=== PATIENT | female | born 1960 | race Caucasian/White ===

== ENCOUNTER 2023-09-12 05:34 | Observation (INO) ==
--- NOTE | 2023-08-26 13:35 | PAT Medication Instructions ---
Medication Instructions Date of Service August 26, 2023 Home Medications cholecalciferol (vitamin D3) 125 mcg (5,000 unit) tablet (Vitamin D3) 125 mcg PO QAM cranberry 500 mg capsule 500 mg PO DAILY duloxetine 20 mg capsule,delayed release (Cymbalta) 20 mg PO BID ibuprofen 200 mg tablet 200 - 800 mg PO Q6H PRN levothyroxine 88 mcg tablet 88 mcg PO QAM lisinopril 40 mg tablet 40 mg PO QAM propranolol 10 mg tablet 10 mg PO QAM STOP 7 days before surgery tirzepatide (weight loss) 5 mg/0.5 mL subcutaneous pen injector 5 mg subcut WK ASK your surgeon for instructions ibuprofen 200 mg tablet 200 - 800 mg PO Q6H PRN DO NOT take the morning of surgery cholecalciferol (vitamin D3) 125 mcg (5,000 unit) tablet (Vitamin D3) 125 mcg PO QAM cranberry 500 mg capsule 500 mg PO DAILY lisinopril 40 mg tablet 40 mg PO QAM Take morning of surgery With a small sip of water, OTHERWISE NOTHING TO EAT OR DRINK AFTER MIDNIGHT: duloxetine 20 mg capsule,delayed release (Cymbalta) 20 mg PO BID levothyroxine 88 mcg tablet 88 mcg PO QAM propranolol 10 mg tablet 10 mg PO QAM Take evening before surgery duloxetine 20 mg capsule,delayed release (Cymbalta) 20 mg PO BID Other Notes If you have any questions please call us at [phone] or [phone] or [phone] or [phone]
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
[2023-09-12] MEDS: LR 60ML/HR IV SCH (06:59)
[2023-09-12] MEDS: LR 15ML/HR IV SCH (06:59)
[2023-09-12] MEDS: GABAPENTIN 600 MG DOSE PO SCH (07:00)
[2023-09-12] MEDS: ACETAMINOPHEN 500 MG TAB PO SCH (07:00)
[2023-09-12] MEDS: CeleBREX 200 MG CAP PO SCH (07:00)
[2023-09-12] MEDS ORDERED: MIDAZOLAM HCL 1 MG/ML 2ML VIAL ONE (07:22)
[2023-09-12] MEDS ORDERED: fentaNYL citrate PF 100 MCG/2 ML VIAL ONE ×2 (07:22→08:34)
[2023-09-12] MEDS ORDERED: ONDANSETRON INJ 2 MG/ML 2 ML VIAL IV PRN ×2 (07:25→12:14)
[2023-09-12] MEDS ORDERED: ePHEDrine sulfate 50 MG/ML AMP IV PRN (07:25)
[2023-09-12] MEDS ORDERED: ATROPINE SULFATE 0.1 MG/ML 10ML SYR IV PRN (07:25)
[2023-09-12] MEDS ORDERED: DEXAMETHASONE SOD INJ 4 MG/ML VIAL ONE (07:28)
[2023-09-12] MEDS ORDERED: PROPOFOL IV EMULSION 10 MG/ML 20 ML VIAL IV ONE (07:28)
[2023-09-12] MEDS ORDERED: ONDANSETRON INJ 2 MG/ML 2 ML VIAL ONE (07:28)
[2023-09-12] MEDS ORDERED: LIDOCAINE 2% 2 ML VIAL/AMP(20MG/ML) INFIL ONE (07:28)
[2023-09-12] MEDS ORDERED: ROCURONIUM BROMIDE 10 MG/ML 5 ML VIAL IV ONE ×2 (07:28→08:49)
[2023-09-12] MEDS: SCOPOLAMINE 1 MG/72 HR TDSY PATCH TD ONE ×2 (07:28)
--- NOTE | 2023-09-12 07:34 | History & Physical Bridge Note ---
Date of Service September 12, 2023 History & Physical Bridge Note I have examined the patient, reviewed the History & Physical and in the interval since the performance of the History & Physical I have noted the following changes of clinical significance: no changes noted
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
[2023-09-12] MEDS: ceFAZolin 2000MG 2,000 MG/15 ML SYR IV SCH ×2 (07:47→15:18)
[2023-09-12] MEDS: ceFAZolin 330 MG/ML 1 GM VIAL ONE (08:27)
[2023-09-12] MEDS ORDERED: diphenhydrAMINE 50 MG/ML VIAL ONE ×2 (08:37→10:00)
[2023-09-12] MEDS: FLOSEAL HEMOSTATIC MATRIX 10ML TOP ONE (09:10)
[2023-09-12] MEDS ORDERED: SUGAMMADEX SODIUM 200 MG/2 ML VIAL IV ONE (09:14)
--- NOTE | 2023-09-12 09:22 | Operative Report ---
Post Operative Report Pre & Post Diagnosis Operation Date: 09/12/23 07:40 Pre-Op Diagnosis: #1 cervical radiculopathy #2 cervical disc herniation with radiculopathy #3 cervical spinal stenosis #4 morbid obesity Post-Op Diagnosis: Same I identified the patient and participated in the time-out.: Yes Procedure Operation Date: 09/12/23 07:40 Actual Procedures #1 anterior cervical discectomy with bilateral foraminotomies C4-C5 C5-C6. #2 anterior cervical arthrodesis C4-C5 C5-C6. #3 placement Spira 8 mm cage filled with I factor at C4-C5 C5-C6. #4 application of K2 M plate and screws from C4- C6. Surgeon Suhail Pierce, DO [employer] Anam De Oliveira Estimated Blood Loss 25 Findings See Below The patient is 5 foot 7 weighing over 119 kg with a BMI in excess of 41. I am billing 22 modifier as her body habitus added significant technical difficulty with positioning exposure and the procedure itself required deepest retractors and instruments in order to perform her procedure. This at least for 50% increased operative time. Specimens None Indications This is a 62-year-old female who presents above-mentioned diagnosis after failing since course of nonoperative care is here for surgical invention. Description of Procedure Patient was met with identified informed consent obtained. Patient was then taken to the operative suite underwent patient placed in a supine position on the Talat table with head Mccray head order. Positioning required significant time to adequately position the patient to access the cervical spine. She was then prepped and draped in a sterile fashion. The assistance of fluoroscopy defy the C5 vertebral body and a transverse incision was placed on the right anterior aspect of the cervical spine at minus region. Blunt dissection with assistance of bipolar electrocautery from down to and exposing the anterior cervical spine from C4-C6. I then placed our longest retractors in order to visualize the spine. I then performed a complete discectomy C4-C5 out to the uncovertebral's bilaterally. [place] distraction pins utilized to assist in visualization. All posterior annular fibers longitudinal ligament removed and bilateral foraminotomies performed as well as excision of a disc herniation for complete decompression. Endplates burred to subcortical bleeding bone and 8 mm Spira cage filled with I factor tapped in position. Distracting apparatus was removed and area position to C5-C6. A complete discectomy can performed without complete loss bilaterally. [place] distraction pins again utilized. Removed all posterior annular fibers longitudinal limit bilateral foraminotomies performed. Endplates burred to subcortically and bone and a 8 mm Spira cage with I factor tapped in position. Distracting apparatus was removed all anterior osteophytes burred to a smooth cortical surface and a K2 M plate and screws applied with the assistance of fluoroscopy. Incision was then copiously irrigated explored to ensure no damage to surrounding structures remaining bleeding. 10 round ТАТЬЯНА drain inserted. The incision was then closed with 2 Vicryl in a fashion of 4 Monocryl for final skin closure. Steri-Strips sterile dressing placed. Patient awakened taken to PACU stable condition. Please note spinal cord monitoring utilized at the procedure no changes noted. Lastly Anam De Oliveira was present at the entire surgery involved the patient positioning complex portion of the surgery and final skin closure. I attest to the content of the Intraoperative Record and any orders documented therein. Any exceptions are noted below.
[2023-09-12] MEDS: fentaNYL citrate PF 100 MCG/2 ML VIAL IV PRN (09:55)
[2023-09-12] MEDS ORDERED: GLYCOPYRROLATE 0.2 MG/ML VIAL ONE (10:00)
--- NOTE | 2023-09-12 10:01 | Fluoroscopy Report ---
FL cervical 2-3V CLINICAL HISTORY: ACDF C4-C6 COMPARISON STUDY: None. FLUOROSCOPY TIME: 10 seconds. FLUOROSCOPY IMAGES: 2 Ka,r: 2.3 mGy FINDINGS: Anterior cervical discectomy and fusion from C4 through C6. The hardware appears intact. An endotracheal tube is noted. A surgical drain is in place on the final image. IMPRESSION: Fluoroscopic assistance as above. ACT 112: Negative or not required by law. Electronically signed by: Alexander Medina M.D. 09/12/2023 10:00 AM
--- NOTE | 2023-09-12 10:45 | Anesthesiology Progress Note ---
Date of Service September 12, 2023 Anesthesia Post Procedure Vital Signs Vital Signs: Temp Pulse Pulse Resp BP Pulse Ox O2 Del Method 09/12/23 10:35 97.5 F L 75 13 148/75 H 96 Nasal Cannula 09/12/23 10:25 74 12 132/78 96 Nasal Cannula 09/12/23 10:15 75 13 145/95 H 96 Oxymask 09/12/23 10:05 71 12 151/93 H 97 Oxymask 09/12/23 09:55 66 12 155/91 H 100 Oxymask 09/12/23 09:45 97.9 F 80 16 172/105 H 99 Oxymask 09/12/23 06:40 97.7 F 73 18 150/79 H 98 Room Air O2 Flow Rate 09/12/23 10:35 2 09/12/23 10:25 2 09/12/23 10:15 4 09/12/23 10:05 7 09/12/23 09:55 12 09/12/23 09:45 12 09/12/23 06:40 Pain Intensity Left Shoulder: Pain Intensity: 4 Neck: Pain Intensity: 4 Transfer of Care Handoff Completed per policy Notes Mental Status: alert / awake / arousable and participated in evaluation Patient Amnestic to Procedure: Yes Nausea / Vomiting: adequately controlled Pain: adequately controlled Airway Patency, RR, SpO2: stable & adequate BP & HR: stable & adequate Hydration State: stable & adequate Anesthetic Complications: no major complications apparent and Pt Satisfied with anesthetic care
[2023-09-12] MEDS ORDERED: RACEPINEPHRINE 2.25% NEBU SOLN 0.5 ML VIAL INH PRN (12:14)
[2023-09-12] MEDS ORDERED: ALUMINUM/MAGNESIUM SUSP 30 ML UDC PO PRN (12:14)
[2023-09-12] MEDS ORDERED: DO NOT ADMINISTER PNEUMOCOCCAL VACCINE PRN (12:14)
[2023-09-12] MEDS ORDERED: bisacodyL 10 MG SUPP PR PRN (12:14)
[2023-09-12] MEDS ORDERED: [UNRECOGNIZED DRUG - OTHER] SQ SCH (12:14)
[2023-09-12] MEDS ORDERED: diphenhydrAMINE Capsule 25 MG CAP PO PRN (12:14)
[2023-09-12] MEDS ORDERED: FAMOTIDINE 20 MG TAB PO PRN (12:14)
[2023-09-12] MEDS ORDERED: LORazepam 0.5 MG in SYRINGE 0.25 ML IV PRN (12:14)
[2023-09-12] MEDS ORDERED: PROMETHAZINE HCL 12.5 MG in SODIUM CHLORIDE 0.9% 50 ML IV PRN (12:14)
[2023-09-12] MEDS ORDERED: hydrOXYzine HCl 25 MG TAB PO PRN (12:14)
[2023-09-12] MEDS ORDERED: SOD PHOSPHATE/SOD BIPHOSPHATE ENEMA 132 ML BTL PR PRN (12:14)
[2023-09-12] MEDS ORDERED: DO NOT ADMINISTER FLU VACCINE PRN (12:14)
[2023-09-12] MEDS ORDERED: HYDROmorphone INJ 0.5 MG/0.5 ML SYR IV PRN (12:14)
[2023-09-12] MEDS ORDERED: HYDROmorphone INJ 1 MG/ML SYRINGE IV PRN (12:14)
[2023-09-12] MEDS ORDERED: ACETAMINOPHEN 1,000 MG/100 ML VIAL IV PRN (12:14)
[2023-09-12] MEDS ORDERED: traMADol HCL 50 MG TABLET PO PRN (12:14)
[2023-09-12] MEDS ORDERED: NALOXONE HCL 0.4 MG/1 ML VIAL/CARP IV PRN (12:14)
[2023-09-12] MEDS ORDERED: MAGNESIUM HYDROXIDE SUSP 30 ML UDC PO PRN (12:14)
[2023-09-12] MEDS ORDERED: METOCLOPRAMIDE HCL INJ 5 MG/ML 2 ML VIAL IV PRN (12:14)
[2023-09-12] MEDS ORDERED: TIRZEPATIDE 5 MG/0.5 ML SQ SCH (12:14)
[2023-09-12] MEDS ORDERED: LORazepam 0.5 MG TAB PO PRN (12:14)
[2023-09-12] MEDS ORDERED: dexAMETHasone 8 MG in SYRINGE 0 ML IV PRN (12:14)
[2023-09-12] MEDS ORDERED: ONDANSETRON 4 MG OD TAB PO PRN (12:14)
[2023-09-12] MEDS ORDERED: ACETAMINOPHEN 500 MG TAB PO PRN (12:14)
[2023-09-12] MEDS: LACTATED RINGER'S 1,000 ML IV SCH (13:02)
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
[2023-09-12] MEDS: oxyCODONE HCL IR 5 MG TAB (IMMEDIATE RELEASE) PO PRN (14:29)
[2023-09-12] MEDS: CHECK SCOPOLAMINE PATCH PLACEMENT SCH (15:23)
[2023-09-12] MEDS: DULoxetine HCL 20 MG CAP PO SCH (19:50)
[2023-09-12] MEDS: DOCUSATE SODIUM/SENNA 50/8.6MG TAB PO SCH (23:38)
[2023-09-13] MEDS: POLYETHYLENE (MIRALAX) 17 GM PACK PO SCH (05:14)
[2023-09-13] MEDS: LEVOTHYROXINE SODIUM 88 MCG TABLET PO SCH (05:15)
--- NOTE | 2023-09-13 07:05 | Hospitalist Progress Note ---
Date of Service September 13, 2023 Assessment & Plan (1) Cervical stenosis of spinal canal: (2) Hypertension: (3) Sinus tachycardia: (4) Sleep apnea: (5) Hypothyroidism: (6) GERD (gastroesophageal reflux disease): (7) Chronic pain: (8) Depression: Plan: Cervical Spine Stenosis Cervical disc herniation with radiculopathy Cervicular radiculopathy - S/p discectomy and bilateral foraminotomies of C4-C5 and C5-C6 by Dr. Pierce - Admitted to med surg per the primary team - Pain management, bowel regimen and DVT ppx per the primary team - PT/OT consults - Follow am CBC to monitor for acute blood loss, hgb 14.2 on 08/31 - ТАТЬЯНА drain in place in anterior neck, place C collar on. HTN Sinus tachycardia - Hx of such, chronic, continue on home propranolol and lisinopril LUDWIG - CPAP HS - pt brought from home Depression Chronic Pain - Continue cymbalta Hypothyroidism - Chronic, stable, cont levothyroxine 88 mcg daily Obesity - Zepbound 5 mg weekly injection, takes on Fridays, will take it when she is discharge. Has been on med for 2 months, 15 lb weight loss total sinice 2 mo ago. - BMI 41.2 DVT ppx: teds, scds Lines: ТАТЬЯНА drain anterior neck FEN/GI: Clear liquid diet, advance as tolerated CODE: Full code Dispo: From home, likely to remain in the hospital x 1-2 days per primary team Thank you for involving us in the care of Ms. Grullon. If you have any questions or concerns please do not hesitate to call. At this time medicine will follow along. Admission and Anticipated Discharge Date Admission Date: September 12, 2023 Subjective Pt seen in follow up of med consult, s/p cervical discectomy Physical Exam Physical Exam: General: awake, alert, no apparent distress, obese white female with BMI of 41.2 Head: Normocephalic, atraumatic ENT: PERRL, EOMI, no pharyngeal exudate, mucous membranes moist, Neck with c- collar at bedside (asked nursing to place on), ТАТЬЯНА drain intact with bloody outs Chest: Clear to auscultation, on room air, no adventitious breath sounds Cardiac: Regular rate and rhythm, no murmur, no JVD, normal peripheral pulses, good capillary refill Abdominal: NABS x 4 quadrants, soft, nondistended, nontender to palpation, no rebound or guarding Extremities: Normal inspection, no peripheral edema or erythema, calfs nontender to palpation Psych: Normal mood and affect Neuro: AAO x 3, strength intact bilaterally and rated 5/5, no motor deficits, speech is clear, no peripheral sensory deficits Results & Data Results & Data Vital Signs (Past 12 Hours) Vital Signs Temp Pulse Pulse Resp BP Pulse Ox O2 Del Method 09/13/23 05:16 36.4 C L 79 18 130/78 96 Room Air 09/13/23 02:56 77 18 92 Room Air 09/13/23 02:44 36.5 C 70 18 110/62 93 Room Air 09/13/23 00:44 36.6 C 61 18 105/65 95 Room Air 09/12/23 23:44 36.6 C 71 18 114/79 92 Room Air 09/12/23 22:57 70 17 95 Room Air 09/12/23 21:22 36.4 C L 71 18 115/72 92 Room Air 09/12/23 20:03 72 16 92 Room Air 09/12/23 19:42 36.3 C L 71 18 115/69 93 Room Air Medications Administered Current Inpatient Medications Acetaminophen (Acetaminophen 500 Mg Tab) 1,000 mg PO Q8H PRN PRN Reason: MILD Pain Scale 1,2,3 & Pre PT Stop: 10/12/23 12:13 Al Hydrox/Mg Hydrox/Simethicone (Aluminum/Magnesium Susp 30 Ml Udc) 30 ml PO Q6H PRN PRN Reason: Dyspepsia Stop: 10/12/23 12:13 Bisacodyl (Bisacodyl 10 Mg Supp) 10 mg DE DAILY PRN PRN Reason: Constipation Stop: 10/12/23 12:13 Diphenhydramine HCl (Diphenhydramine Capsule 25 Mg Cap) 25 mg PO Q6H PRN PRN Reason: Allergic Rhinitis/Insomnia Stop: 10/12/23 12:13 Duloxetine HCl (Duloxetine Hcl 20 Mg Cap) 20 mg PO BID [facility] Stop: 10/12/23 20:59 Last Admin: 09/12/23 19:50 Dose: 20 mg Epinephrine (Racepinephrine 2.25% Nebu Soln 0.5 Ml Vial) 0.5 ml INH NOW PRN PRN Reason: If stridor present Famotidine (Famotidine 20 Mg Tab) 20 mg PO Q12H PRN PRN Reason: Dyspepsia Stop: 10/12/23 12:13 Hydromorphone HCl (Hydromorphone Inj 0.5 Mg/0.5 Ml Syr) 0.5 mg IV Q3H PRN PRN Reason: MODERATE Pain (Scale 4,5,6) & Pre PT Stop: 09/26/23 12:13 Hydromorphone HCl (Hydromorphone Inj 1 Mg/Ml Syringe) 1 mg IV Q3H PRN PRN Reason: SEVERE Pain (Scale 7,8,9,10) Stop: 09/26/23 12:13 Hydroxyzine HCl (Hydroxyzine Hcl 25 Mg Tab) 25 mg PO Q8H PRN PRN Reason: Anxiety Stop: 10/12/23 12:13 Dexamethasone 8 mg/ Syringe 2 mls @ 1 mls/min IV NOW PRN PRN Reason: If stridor present Promethazine HCl 12.5 mg/ (Sodium Chloride) 50.5 mls @ 202 mls/hr IV Q6H PRN PRN Reason: Nausea &/or Vomiting Stop: 10/12/23 12:13 Acetaminophen (Ofirmev) 1,000 mg in 100 mls @ 400 mls/hr IV Q8H PRN PRN Reason: Pain Rating 1-3 & Pre PT Stop: 09/13/23 12:15 Lorazepam 0.5 mg/ Syringe 0.5 mls @ 2 mls/min IV Q8H PRN; Protocol PRN Reason: Sedation/Anxiety Stop: 10/12/23 12:13 Dexamethasone 6 mg/ Syringe 1.5 mls @ 1 mls/min IV DAILY [facility] Stop: 09/15/23 09:02 Influenza Virus Vaccine Quadrival (Do Not Administer Flu Vaccine) 1 each N/A PRN PRN PRN Reason: Notification Stop: 10/12/23 12:13 Levothyroxine Sodium (Levothyroxine Sodium 88 Mcg Tablet) 88 mcg PO DAILYBB [facility] Stop: 10/13/23 06:29 Last Admin: 09/13/23 05:15 Dose: 88 mcg Lisinopril (Lisinopril 40 Mg Tab) 40 mg PO QAM [facility] Stop: 10/13/23 08:59 Lorazepam (Lorazepam 0.5 Mg Tab) 0.5 mg PO Q8H PRN PRN Reason: Sedation/Anxiety Stop: 10/12/23 12:13 Magnesium Hydroxide (Magnesium Hydroxide Susp 30 Ml Udc) 30 ml PO Q24H PRN PRN Reason: Constipation Stop: 10/12/23 12:13 Metoclopramide HCl (Metoclopramide Hcl Inj 5 Mg/Ml 2 Ml Vial) 10 mg IV Q6H PRN PRN Reason: Nausea &/or Vomiting Stop: 10/12/23 12:13 Miscellaneous (Check Scopolamine Patch Placement) 1 each N/A QS [facility] Stop: 09/15/23 05:59 Last Admin: 09/13/23 01:35 Dose: 1 each Miscellaneous (Remove Transderm-Scop Patch) 1 each N/A ONE ONE Stop: 09/15/23 06:01 Naloxone HCl (Naloxone Hcl 0.4 Mg/1 Ml Vial/Carp) 0.1 mg IV Q5M PRN PRN Reason: Oversedation/Resp depression Stop: 10/12/23 12:13 Ondansetron HCl (Ondansetron Inj 2 Mg/Ml 2 Ml Vial) 4 mg IV Q6H PRN PRN Reason: Nausea &/or Vomiting Stop: 10/12/23 12:13 Ondansetron HCl (Ondansetron 4 Mg Od Tab) 4 mg PO Q6H PRN PRN Reason: Nausea Stop: 10/12/23 12:13 Oxycodone HCl (Oxycodone Hcl Ir 5 Mg Tab (Immediate Release)) 5 - 10 mg PO Q4H PRN PRN Reason: Pain & Pre PT Stop: 09/26/23 12:13 Last Admin: 09/13/23 05:15 Dose: 10 mg Pneumococcal Polyvalent Vaccine (Do Not Administer Pneumococcal Vaccine) 1 each N/A PRN PRN PRN Reason: Notification Stop: 10/12/23 12:13 Polyethylene Glycol (Polyethylene (Miralax) 17 Gm Pack) 17 gm PO Q6 [facility] Stop: 10/13/23 05:59 Last Admin: 09/13/23 05:14 Dose: 17 gm Propranolol HCl (Propranolol Hcl 10 Mg Tab) 10 mg PO QAM [facility] Stop: 10/13/23 08:59 Senna/Docusate Sodium (Docusate Sodium/Senna 50/8.6mg Tab) 2 tab PO HS [facility] Stop: 10/12/23 20:59 Last Admin: 09/12/23 23:38 Dose: 2 tab Sodium Biphosphate/Sodium Phosphate (Sod Phosphate/Sod Biphosphate Enema 132 Ml Btl) 132 ml DE ONE PRN PRN Reason: Constipation Stop: 10/12/23 12:13 Tramadol HCl (Tramadol Hcl 50 Mg Tablet) 50 - 100 mg PO Q4H PRN PRN Reason: Moderate-Severe pain & Pre PT Stop: 10/12/23 12:13 Vitamin D (Cholecalciferol 125 Mcg (5,000 Units) Tab) 125 mcg PO QAM [facility] Stop: 10/13/23 08:59
[2023-09-13] MEDS: CHOLECALCIFEROL 125 MCG (5,000 UNITS) TAB PO SCH (07:44)
[2023-09-13] MEDS: PROPRANOLOL HCL 10 MG TAB PO SCH (07:44)
[2023-09-13] MEDS: lisinopril 40 MG TAB PO SCH (07:44)
[2023-09-13] MEDS: dexAMETHasone 6 MG in SYRINGE 0 ML IV SCH (07:45)
--- NOTE | 2023-09-13 08:38 | Discharge Summary ---
Date of Service September 13, 2023 Admission HPI Per Admitting Provider This is a 62-year-old female who presents for persistent neck and arm pain after failed course of nonoperative care is here for surgical invention. Principal Diagnosis Cervical spinal stenosis with radiculopathy Discharge Data Allergies Allergy/AdvReac Type Severity Reaction Status Date / Time azithromycin AdvReac Intermediate nausea and Verified 09/12/23 06:44 vomiting doxycycline AdvReac Intermediate nausea and Verified 09/12/23 06:44 vomiting Consultations 09/12/23 12:14 Consult Hospitalist Routine Procedures Performed Operation Date: 09/12/23 07:40 Actual Procedures p C4-C6 Anterior Cerivcal Discectomy and Fusion, Spinal Cord Monitoring(Not Applicable) - Suhail Pierce DO Ordered Studies 09/12/23 07:40 FL cervical 2-3V Routine Hospital Course (1) Cervical stenosis of spinal canal: Patient underwent anterior cervical discectomy and fusion tolerated this well was taken to orthopedic for postoperative. Postop patient progressed appropriately. Arm symptoms improved. Swallowing well. No hoarseness. Excellent strength testing. ТАТЬЯНА drain decreasing. Subsequent discharge home. Discharge orders instructions found in chart for further review. Total Time Total Time Spent Total Time Spent (In Minutes): 20 minutes Discharge Plan Discharge Items Patient Disposition: Home - Self-Care Reason For Visit: Cervical Radiculopathy, Cervical Spondylosis Discharge Diagnosis: Cervical disc herniation with radiculopathy Activity: As commented below Non-emergency contact: Primary Care Provider Call non-emergency contact if: you have any medication questions Follow-up/Referrals: Rishabh Duggan MD [Primary Care Provider] - Diet: Regular Addtl Attending Provider Instructions: ACTIVITY RECOMMENDATIONS: SELF CARE INSTRUCTIONS AFTER CERVICAL FUSIONS 1. No smoking. Smoking drastically decreases the chance of a solid fusion. 2. No bending, lifting more than 5 pounds, or twisting (roll like a log when turning in bed). 3. You may shower 3 days after surgery. Thoroughly dry wound. Do not soak in the tub. 4. Cervical collar: Must be worn at all times including sleeping. You may remove the brace only to bath, eat and if you are sitting in a recliner. 5. Please walk as much as you can for exercise. Gradually increase the distance that you walk as your endurance increases. SPECIAL CARE INSTRUCTIONS: VERY IMPORTANT TO READ AND REVIEW A. Do not take any anti-inflammatory medications (i.e. Indocin, Advil, Aspirin, Naprosyn, Aleve, Motrin, etc.) as these may inhibit the chance of a solid fusion. Tylenol is okay to take. B. Your surgical incision has been closed with a cosmetic suture under the skin that will dissolve in about 6 weeks. In 14 days, you can use a pair of clean scissors and cut the suture that is left outside of the skin at the ends of your incision. C. Complications are uncommon, but please contact us if you have any signs or symptoms of: 1. wound infection (fever higher than 102.5 degrees F, redness, separation of wound, drainage, or increasing pain from the incision) 2. blood clots in legs (pain, swelling, redness and warmth in legs) 3. urinary tract infection (fever higher than 102.5 degrees, burning upon urination or increased frequency of urination) 4. nerve problems (inability to walk on your toes or heels, numbness, loss of bowel or bladder control) 5. any other symptoms that concern you. D. Please call the office at if you have any concerns or questions about your operation or recovery. MANAGING PAIN AFTER SPINAL SURGERY 1. Narcotic medication is intended for short-term use and will be provided for surgical pain. Surgical pain usually lasts for a period of 4-6 weeks. Narcotic medication includes Percocet, Vicodin, Darvocet, Tylenol #3 or Lortab. 2. Longer-term pain is more appropriately treated with non-narcotic medication such as Tylenol ES. 3. Muscle spasm is not appropriately treated with narcotics. Muscle relaxers such as Soma, Flexeril or Skelaxin can be used along with Tylenol ES. 4. Remember that we all live with some "aches and pains". This is not unusual or uncommon after an injury or as we get older. 5. We will provide appropriate medication within the normal guidelines of their prescribed use. We will also be very cautious and aware of potential abuse and extended duration of patients' medication needs. 6. Please allow 2-3 days to process refills. Prescriptions will not be mailed but must be picked up at the office. FOLLOW UP VISIT: Keep your scheduled follow-up appointment. Any questions, please call the office at . Pending Studies at Discharge: No Stand-Alone Forms: My [facility], Smoking Cessation Medications and DC Order Prescriptions: New tramadol 50 mg tablet 50 mg PO Q6H PRN (Reason: pain, moderate) Qty: 20 0RF oxycodone 5 mg tablet 5 mg PO Q6H PRN (Reason: pain) Qty: 20 0RF Continued levothyroxine 88 mcg Tablet 88 mcg PO QAM propranolol 10 mg Tablet 10 mg PO QAM lisinopril 40 mg Tablet 40 mg PO QAM duloxetine [Cymbalta] 20 mg Capsule,Delayed Release(Dr/Ec) 20 mg PO BID Zepbound 5 mg/0.5 mL Pen Injector 5 mg SUBCUT WK Rx Instructions: Friday cranberry 500 mg Capsule 500 mg PO DAILY Rx Instructions: administer with meals cholecalciferol (vitamin D3) [Vitamin D3] 125 mcg (5,000 unit) Tablet 125 mcg PO QAM Discontinued ibuprofen 200 mg Tablet 200 - 800 mg PO Q6H PRN (Reason: Pain) Discharge Orders: Discharge Order (Routine); Ordered 09/13/23 Ordered By: Suhail Pierce Admission Data Admit Date/Time: 09/12/23 09:25 Attending Provider: Suhail Pierce Admit Provider: Suhail Pierce Primary Care Provider: Rishabh Duggan Other Providers: Yenni Hemphill
== END 2023-09-13 11:43 | disposition home or self-care (01) ==
LOC: ASU 05:34 → PACUINP 05:34 → 3E 12:57